=== PATIENT | male | born 1995 | race Two or more races ===

== ENCOUNTER 2019-12-30 13:43 | Emergency (ER) | payer OTHER ==
[~2019-12-30] VITALS: Ht 180.3 cm; Wt 70.0 kg
--- NOTE | 2019-12-30 13:49 | NUR ---
Discussion with ER PA regarding pt visit. PA to see pt next.
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
--- NOTE | 2019-12-30 14:07 | NUR ---
PER FENG JEAN PLAN IS TO MONITOR PT UNTIL APPROX 1445.
[2019-12-30 14:59] VITALS: BP 116/68
== END 2019-12-30 15:02 | disposition home or self-care (01) ==
LOC: ED 14:56
DX: F10.129 Alcohol abuse with intoxication, unspecified (principal); V47.5XXA Car driver injured in collision with fixed or stationary object in traffic accident, initial encounter; Y93.89 Activity, other specified; Y92.89 Other specified places as the place of occurrence of the external cause; Y99.8 Other external cause status
CPT/HCPCS: 99283